=== PATIENT | female | born 1980 | race Caucasian/White ===

== ENCOUNTER 2020-05-09 19:24 | Emergency (ER) | payer OTHER ==
[~2020-05-09] VITALS: Ht 167.6 cm; Wt 72.6 kg
[2020-05-09 19:34] VITALS: BP 120/82
[2020-05-09] MEDS ORDERED: NACL 0.9% 1,000 ML IV ONE (20:00)
[2020-05-09] MEDS ORDERED: diphenhydrAMINE 50 MG/ML VIAL IVP ONE (20:00)
[2020-05-09] MEDS ORDERED: KETOROLAC 30 MG/ML VIAL IVP ONE (20:00)
[2020-05-09] MEDS ORDERED: PROCHLORPERAZINE 10 MG/2 ML VIAL IVP ONE (20:00)
[2020-05-09] MEDS ORDERED: ONDA4TAB PO (20:41)
[2020-05-09 21:00] VITALS: BP 118/74
== END 2020-05-09 21:13 | disposition home or self-care (01) ==
LOC: MED 19:24
DX: G43.909 Migraine, unspecified, not intractable, without status migrainosus (principal)
CPT/HCPCS: 96361; 96374; 96375; 99284; J0780; J1200; J1885; J7030